=== PATIENT | male | born 1940 | race Asian ===

== ENCOUNTER 2025-05-13 06:33 | Inpatient (IN) | payer MEDICARE, BC ==
[~2025-05-13] VITALS: Ht 165.1 cm; Wt 72.6 kg
[2025-05-13] MEDS: ASPIRIN/SOD BICARB/CITRIC ACID 324MG TAB EFF PO ONE (06:30)
[2025-05-13] MEDS ORDERED: OLME40TA11 PO (06:43)
[2025-05-13] MEDS ORDERED: WARF-53 PO (06:43)
[2025-05-13] MEDS ORDERED: BUDE6HFA INH (06:55)
[2025-05-13] MEDS ORDERED: ALBU18HF2 IH (06:55)
[2025-05-13] MEDS ORDERED: HEPARIN 1000 UNITS/ML 10ML ONE (07:45)
[2025-05-13] MEDS ORDERED: LIDOCAINE HCL 1% 20ML VIAL ONE (07:46)
[2025-05-13] MEDS ORDERED: FENTANYL CITRATE/PF 50MCG/ML 2ML VIAL ONE (07:53)
[2025-05-13] MEDS ORDERED: IODIXANOL 320MG/ML 100 ML BOTTLE IV ONE ×2 (07:53→08:43)
[2025-05-13] MEDS ORDERED: MIDAZOLAM HCL 2 MG/2 ML VIAL ONE (07:54)
[2025-05-13] MEDS ORDERED: EPINEPHRINE 0.1MG/ML (1:10,000) 10ML SYR ONE (08:38)
[2025-05-13] MEDS ORDERED: ATROPINE SULFATE 1MG/10ML SYR ONE (08:38)
[2025-05-13] MEDS ORDERED: ATROPINE SULFATE 1MG/10ML SYR IV PRN (09:30)
[2025-05-13] MEDS ORDERED: ACETAMINOPHEN 325MG TABLET PO PRN ×3 (09:30→11:45)
[2025-05-13 09:55] VITALS: BP 114/64; PULSE 72; RESP 16; TEMP 36.7; O2SAT 96
[2025-05-13 10:49] VITALS: BP 114/64; PULSE 72; RESP 16; TEMP 36.696
[2025-05-13 12:00] VITALS: BP 119/76; PULSE 85; RESP 17; TEMP 36.6; O2SAT 92
[2025-05-13] MEDS ORDERED: EPOETIN ALFA 10,000 UNITS/ML VIAL SUBCUT SCH (12:00)
[2025-05-13] MEDS: SODIUM CHLORIDE 0.45% 1,000 ML IV ONE (12:15)
[2025-05-13] MEDS ORDERED: ACETYLCYSTEINE 200MG/ML 20% VIAL 4ML INH SCH (14:00)
[2025-05-13 16:00] VITALS: BP 125/75; PULSE 78; RESP 18; TEMP 36.8; O2SAT 95
[2025-05-13 16:00] LABS: BASOPHILS % 0.3 % (0.0-2.0); EOSINOPHILS % 0.9 % (0.0-5.0); HEMATOCRIT. 40.8 % (42.0-52.0); HEMOGLOBIN. 13.4 g/dL (14.0-18.0); LYMPHOCYTES % 12.6 % (20.0-50.0); MEAN PLATELET VOLUME 8.2 fl (7.4-10.4); MONOCYTES % 6.1 % (2.0-8.0); NEUTROPHILS % 80.1 % (40.0-76.0); PLATELET 160 x1000/uL (130-400); RED BLOOD CELL COUNT 4.34 mill/uL (4.7-6.1); RED CELL DISTRIBUTION WIDTH 13.3 % (11.6-14.6)
[2025-05-13] MEDS ORDERED: ENOXAPARIN 40MG/0.4ML SYR SUBCUT SCH (16:00)
[2025-05-13 16:09] LABS: CREATININE 1.3 mg/dL (0.6-1.3); UREA NITROGEN BLOOD 20.0 mg/dL (9-23)
[2025-05-13 16:23] LABS: INR 1.2
[2025-05-13 16:48] LABS: HEPATITIS C AB NON REACTIVE (Neg) (Negative)
[2025-05-13 20:00] VITALS: BP 117/63; PULSE 78; RESP 16; TEMP 37; O2SAT 97
[2025-05-13] MEDS: ACETYLCYSTEINE 200MG/ML 20% VIAL 4ML PO SCH (20:58)
[2025-05-13] MEDS ORDERED: BISACODYL 10MG SUPP PR PRN (21:00)
[2025-05-13] MEDS ORDERED: DIPHENHYDRAMINE 25MG CAPSULE PO PRN (21:00)
[2025-05-13 21:06] VITALS: PULSE 74; RESP 18; O2SAT 98
[2025-05-13] MEDS: ASCORBIC ACID 500 MG TABLET PO SCH (21:17)
[2025-05-13] MEDS: DOCUSATE SODIUM 100MG CAPSULE PO SCH (21:17)
[2025-05-13] MEDS: ALLOPURINOL 300 MG TABLET PO SCH (21:18)
[2025-05-14 00:16] VITALS: BP 109/72; PULSE 76; RESP 20; TEMP 37.1; O2SAT 96
[2025-05-14 04:00] VITALS: BP 123/76; PULSE 73; RESP 20; TEMP 36.6; O2SAT 95
[2025-05-14] MEDS ORDERED: CHLORHEXIDINE GLUCONATE 4% EXTERNAL USE TOP SCH (05:00)
[2025-05-14 07:09] LABS: CREATININE 1.3 mg/dL (0.6-1.3)
[2025-05-14 07:10] LABS: UREA NITROGEN BLOOD 20.0 mg/dL (9-23)
[2025-05-14 07:30] LABS: BASOPHILS % 0.7 % (0.0-2.0); EOSINOPHILS % 1.5 % (0.0-5.0); HEMATOCRIT. 37.2 % (42.0-52.0); HEMOGLOBIN. 12.4 g/dL (14.0-18.0); LYMPHOCYTES % 14.9 % (20.0-50.0); MEAN PLATELET VOLUME 8.2 fl (7.4-10.4); MONOCYTES % 7.1 % (2.0-8.0); NEUTROPHILS % 75.8 % (40.0-76.0); PLATELET 148 x1000/uL (130-400); RED BLOOD CELL COUNT 4.02 mill/uL (4.7-6.1); RED CELL DISTRIBUTION WIDTH 13.0 % (11.6-14.6)
[2025-05-14 08:00] VITALS: BP 116/97; PULSE 70; RESP 18; TEMP 36.8; O2SAT 96
[2025-05-14 12:00] VITALS: BP_SYST 104; BP_SYST 134; BP_DIAS 85; BP_DIAS 91; PULSE 71; PULSE 82; RESP 18; TEMP 36.7; TEMP 36.8; O2SAT 95; O2SAT 96
[2025-05-14] MEDS: DOCUSATE SODIUM 250MG CAPSULE PO PRN (13:32)
[2025-05-14 16:00] VITALS: BP 106/96; PULSE 73; RESP 14; TEMP 36.9; O2SAT 96
[2025-05-14 20:00] VITALS: PULSE 78; RESP 22; TEMP 36.8
[2025-05-14] MEDS: CHLORHEXIDINE GLUCONATE 4% EXTERNAL USE TOP SCH (20:41)
[2025-05-14] MEDS: ALLOPURINOL 300 MG TABLET PO SCH (22:43)
[2025-05-15] VITALS (56 sets, daily range): BP systolic 72–126; BP diastolic 42–88; PULSE 59–103; RESP 8–22; TEMP 36–36.7; O2SAT 78–100
[2025-05-15] MEDS: CHLORHEXIDINE GLUCONATE 4% EXTERNAL USE TOP SCH (05:00)
[2025-05-15] MEDS ORDERED: DEL NIDO CARDIOPLEGIA 1,000 ML (PREMIX) IV NR ×2 (05:00)
[2025-05-15] MEDS ORDERED: VANCOMYCIN 1GM PMX (XELLIA) 200 ML IV SCH (05:00)
[2025-05-15] MEDS ORDERED: NICARDIPINE 40MG/200ML PREMIX 200 ML IV PRN (05:00)
[2025-05-15] MEDS ORDERED: PAPAVERINE HCL 180MG in SODIUM CHLORIDE 0.9% 24ML IV PRN (05:00)
[2025-05-15] MEDS ORDERED: EPINEPHRINE 5 MG in SODIUM CHLORIDE 0.9% 245 ML IV PRN (05:00)
[2025-05-15] MEDS ORDERED: DOBUTAMINE 250 MG/250 ML PREMIX IV PRN (05:00)
[2025-05-15] MEDS ORDERED: AMINOCAPROIC ACID 5,000 MG in SODIUM CHLORIDE 0.9% 250 ML IV PRN (05:00)
[2025-05-15] MEDS ORDERED: LR with VERAPAMIL, NTG, HEPARIN, SODIUM BICARBONATE (Soln) IV PRN (05:00)
[2025-05-15] MEDS ORDERED: NOREPINEPHRINE 8MG/250ML PMX 250 ML IV PRN (05:00)
[2025-05-15 05:12] LABS: BASOPHILS % 1.0 % (0.0-2.0); EOSINOPHILS % 1.4 % (0.0-5.0); HEMATOCRIT. 39.9 % (42.0-52.0); HEMOGLOBIN. 13.0 g/dL (14.0-18.0); LYMPHOCYTES % 20.9 % (20.0-50.0); MEAN PLATELET VOLUME 7.8 fl (7.4-10.4); MONOCYTES % 8.7 % (2.0-8.0); NEUTROPHILS % 68.0 % (40.0-76.0); PLATELET 152 x1000/uL (130-400); RED BLOOD CELL COUNT 4.25 mill/uL (4.7-6.1); RED CELL DISTRIBUTION WIDTH 13.2 % (11.6-14.6)
[2025-05-15 05:23] LABS: CREATININE 0.7 mg/dL (0.6-1.3); UREA NITROGEN BLOOD 20 mg/dL (9-23)
[2025-05-15] MEDS: ALLOPURINOL 300 MG TABLET PO NR (05:44)
[2025-05-15] MEDS ORDERED: NITROGLYCERIN 50MG PREMIX 250 ML IV ONE (06:05)
[2025-05-15] MEDS ORDERED: DEXMEDETOMIDINE 100 ML IV ONE (06:05)
[2025-05-15] MEDS ORDERED: THROMBIN (BOVINE) 5000 UNITS/VIAL TOP ONE (06:06)
[2025-05-15] MEDS ORDERED: POLYMYXIN B SULFATE 500000 UNITS/VIAL ONE (06:06)
[2025-05-15] MEDS ORDERED: SKIN ADHESIVE 0.7 GM EA TOP ONE (06:43)
[2025-05-15] MEDS ORDERED: PROPOFOL 10MG/ML 100ML 100 ML IV ONE (06:44)
[2025-05-15] MEDS ORDERED: ROCURONIUM BROMIDE 10MG/ML VIAL 5ML IV ONE ×2 (06:52→08:28)
[2025-05-15] MEDS ORDERED: PROPOFOL 200MG/20ML VIAL IV ONE (06:52)
[2025-05-15] MEDS ORDERED: ONDANSETRON HCL 4MG/2ML INJ ONE (06:52)
[2025-05-15] MEDS ORDERED: DEXAMETHASONE 4MG/ML 1ML VIAL ONE (06:52)
[2025-05-15] MEDS ORDERED: HEPARIN 1000 UNITS/ML 10ML ONE ×2 (06:52→06:56)
[2025-05-15] MEDS ORDERED: ETOMIDATE 2MG/ML 10ML VIAL IV ONE (06:52)
[2025-05-15] MEDS ORDERED: ESMOLOL HCL 10MG/ML 10ML VIAL IV ONE (06:52)
[2025-05-15] MEDS ORDERED: LIDOCAINE HCL 1% 10 MG/ML 10ML VIAL ONE (06:52)
[2025-05-15] MEDS ORDERED: SEVOFLURANE 250 ML LIQUID INH ONE (06:55)
[2025-05-15] MEDS ORDERED: FENTANYL CITRATE/PF 50MCG/ML 5ML VIAL ONE (07:07)
[2025-05-15] MEDS ORDERED: CALCIUM CHLORIDE 1GM/10ML SYR IV ONE (07:11)
[2025-05-15] MEDS ORDERED: CEFAZOLIN 2000MG PREMIX 50 ML IV SCH (07:30)
[2025-05-15] MEDS ORDERED: FUROSEMIDE 100MG/10ML VIAL ONE (09:27)
[2025-05-15] MEDS ORDERED: DEXTROSE 50% WATER 50ML SYRINGE IV PRN ×2 (09:30)
[2025-05-15] MEDS ORDERED: MAGNESIUM 2 G PREMIX 50 ML IV PRN ×2 (09:30→11:45)
[2025-05-15] MEDS ORDERED: KCL 10MEQ/50ML PREMIX 200 ML IV PRN (09:30)
[2025-05-15] MEDS ORDERED: MAGNESIUM 1 G PREMIX 100 ML IV PRN (09:30)
[2025-05-15] MEDS ORDERED: KCL 10MEQ/50ML PREMIX 100 ML IV PRN (09:30)
[2025-05-15] MEDS ORDERED: MAGNESIUM SULFATE 3 GM in DEXT 5% WATER 100 ML IV PRN ×2 (09:30→11:45)
[2025-05-15] MEDS ORDERED: ACETAMINOPHEN 1000MG/100ML 100 ML IV ONE (10:06)
[2025-05-15] MEDS ORDERED: DESMOPRESSIN ACETATE 4MCG/ML AMP ONE (11:19)
[2025-05-15] MEDS ORDERED: DOPAMINE 400MG/250ML PREMIX 250 ML IV SCH (11:45)
[2025-05-15] MEDS ORDERED: ALBUMIN HUMAN 12.5G/250ML (5%) IV PRN (11:45)
[2025-05-15] MEDS ORDERED: SODIUM CHLORIDE 0.9% 500 ML IV PRN (11:45)
[2025-05-15] MEDS ORDERED: ALBUMIN HUMAN 25GM/100ML (25%) IV PRN (11:45)
[2025-05-15] MEDS ORDERED: CALCIUM CHLORIDE 5,000 MG in DEXT 5% WATER 500 ML IV PRN (11:45)
[2025-05-15] MEDS ORDERED: CALCIUM CHLORIDE 3,000 MG in DEXT 5% WATER 250 ML IV PRN (11:45)
[2025-05-15] MEDS ORDERED: ACETAMINOPHEN 325MG TABLET PO PRN (11:45)
[2025-05-15] MEDS ORDERED: ALBUMIN HUMAN 12.5G/250ML (5%) IV ONE ×2 (11:59→12:45)
[2025-05-15 12:06] LABS: CREATININE 1.2 mg/dL (0.6-1.3)
[2025-05-15 12:07] LABS: UREA NITROGEN BLOOD 19 mg/dL (9-23)
[2025-05-15 12:08] LABS: ASPARTATE AMINOTRANSFERASE 48 IU/L (<34)
[2025-05-15 12:09] LABS: BILIRUBIN TOTAL 1.1 mg/dL (0.1-1.0); PHOSPHORUS 1.8 mg/dL (2.5-4.9); PROTEIN TOTAL 5.8 g/dL (6.0-8.3)
[2025-05-15] MEDS: INSULIN REGULAR 100 U/100 ML PREMIX IV SCH (12:22)
[2025-05-15] MEDS: DEXT 5%/0.45% NACL 1000ML 1,000 ML IV SCH (12:43)
[2025-05-15] MEDS: ALBUMIN HUMAN 12.5G/250ML (5%) IV NR ×2 (12:44→13:16)
[2025-05-15] MEDS ORDERED: DOPAMINE 400MG/250ML PREMIX 250 ML IV PRN (12:45)
[2025-05-15 12:50] LABS: BG BASE EXCESS -12.1 mmol/L (-2.0-3.0); BG CARBOXYHEMOGLOBIN 0.4 % (0.5-1.5); BG DEOXYHEMOGLOBIN 7.7 % (0.0-5.0); BG FLOW(L/min) 15.00 L/min; BG FRACTION INSPIRED OXYGEN 100; BG HCO3 ACT 14.9 mmol/L (21.0-28.0); BG METHEMOGLOBIN 0.1 % (0.5-1.5); BG OXYGEN SATURATION 92.3 % (94.0-98.0); BG OXYHEMOGLOBIN 91.8 % (94.0-98.0); BG PCO2 37.8 mmHg (35.0-48.0); BG PH 7.214 (7.350-7.450); BG PO2 75.3 mmHg (83.0-108.0); BG SAMPLE SITE ALINE; BG TOTAL HEMOGLOBIN 11.2 g/dL (13.5-17.5); BG VENT MODE MASK - NRB
[2025-05-15] MEDS: IPRATROPIUM/ALBUTEROL 0.5-3(2.5)MG/3ML NEB HHN SCH (12:54)
[2025-05-15] MEDS: KETOROLAC 15MG/ML VIAL IV NR (12:56)
[2025-05-15 12:58] LABS: TROPONIN I HIGH SENSITIVITY 4557 ng/L (3.0-53)
[2025-05-15] MEDS ORDERED: ONDANSETRON HCL 4MG/2ML INJ IV PRN (13:00)
[2025-05-15] MEDS: BLOOD SUGAR DIAGNOSTIC STRIP TEST SCH (13:00)
[2025-05-15] MEDS: FENTANYL CITRATE/PF 50MCG/ML 2ML VIAL IV ONE (13:05)
[2025-05-15] MEDS: DOPAMINE 400MG/250ML PREMIX 250 ML IV PRN ×2 (13:18→19:36)
[2025-05-15] MEDS: EPINEPHRINE 5 MG in DEXT 5% WATER 245 ML IV PRN (13:19)
[2025-05-15] MEDS: NOREPINEPHRINE 8MG/250ML PMX 250 ML IV PRN (13:20)
[2025-05-15 13:51] LABS: BASOPHILS % 0.2 % (0.0-2.0); EOSINOPHILS % 0.1 % (0.0-5.0); HEMATOCRIT. 31.7 % (42.0-52.0); HEMOGLOBIN. 10.1 g/dL (14.0-18.0); LYMPHOCYTES % 8.8 % (20.0-50.0); MEAN PLATELET VOLUME 8.3 fl (7.4-10.4); MONOCYTES % 6.1 % (2.0-8.0); NEUTROPHILS % 84.8 % (40.0-76.0); PLATELET 114 x1000/uL (130-400); RED BLOOD CELL COUNT 3.31 mill/uL (4.7-6.1); RED CELL DISTRIBUTION WIDTH 13.5 % (11.6-14.6)
[2025-05-15] MEDS: KCL 10MEQ/50ML PREMIX 150 ML IV PRN (14:10)
[2025-05-15 14:15] LABS: INR 1.3
[2025-05-15] MEDS: MORPHINE SULFATE 2 MG/ML INJ (NOT FOR IM USE) IV PRN (14:23)
[2025-05-15] MEDS: CEFAZOLIN 1000MG PREMIX 50 ML IV SCH (14:24)
[2025-05-15 14:49] LABS: BG BASE EXCESS -10.9 mmol/L (-2.0-3.0); BG CARBOXYHEMOGLOBIN 0.6 % (0.5-1.5); BG DEOXYHEMOGLOBIN 8.1 % (0.0-5.0); BG FLOW(L/min) 15.00 L/min; BG FRACTION INSPIRED OXYGEN 100; BG HCO3 ACT 16.3 mmol/L (21.0-28.0); BG METHEMOGLOBIN 0.2 % (0.5-1.5); BG OXYGEN SATURATION 91.8 % (94.0-98.0); BG OXYHEMOGLOBIN 91.1 % (94.0-98.0); BG PCO2 41.6 mmHg (35.0-48.0); BG PH 7.211 (7.350-7.450); BG PO2 74.2 mmHg (83.0-108.0); BG SAMPLE SITE ALINE; BG TOTAL HEMOGLOBIN 11.3 g/dL (13.5-17.5); BG VENT MODE MASK - NRB
[2025-05-15] MEDS: SODIUM BICARBONATE 8.4% 50MEQ/50ML SYR IV SCH (15:30)
[2025-05-15] MEDS: FUROSEMIDE 100MG/10ML VIAL IVP NR (15:31)
[2025-05-15] MEDS: HYDROMORPHONE HCL/PF 1MG/ML INJ IV PRN (15:56)
[2025-05-15] MEDS: ASPIRIN 81MG EC TABLET PO SCH (17:06)
[2025-05-15 18:09] LABS: BG BASE EXCESS -3.3 mmol/L (-2.0-3.0); BG CARBOXYHEMOGLOBIN 0.6 % (0.5-1.5); BG DEOXYHEMOGLOBIN 5.5 % (0.0-5.0); BG FLOW(L/min) 6.00 L/min; BG FRACTION INSPIRED OXYGEN 44; BG HCO3 ACT 23.4 mmol/L (21.0-28.0); BG METHEMOGLOBIN 0.2 % (0.5-1.5); BG OXYGEN SATURATION 94.5 % (94.0-98.0); BG OXYHEMOGLOBIN 93.7 % (94.0-98.0); BG PCO2 49.1 mmHg (35.0-48.0); BG PH 7.296 (7.350-7.450); BG PO2 80.1 mmHg (83.0-108.0); BG SAMPLE SITE ALINE; BG TOTAL HEMOGLOBIN 11.2 g/dL (13.5-17.5); BG VENT MODE NASAL CANNULA
[2025-05-15] MEDS ORDERED: WARFARIN SODIUM 2MG TABLET PO ONE (18:15)
[2025-05-15] MEDS: EPINEPHRINE 5 MG in SODIUM CHLORIDE 0.9% 245 ML IV PRN (18:20)
[2025-05-15] MEDS: INSULIN REGULAR 100U/100ML PMX 100 ML IV PRN (18:26)
[2025-05-15 18:30] LABS: PLATELET 105 x1000/uL (130-400); RED BLOOD CELL COUNT 3.26 mill/uL (4.7-6.1); RED CELL DISTRIBUTION WIDTH 13.3 % (11.6-14.6)
[2025-05-15] MEDS: METOCLOPRAMIDE HCL 10MG/2ML VIAL IV SCH (18:36)
[2025-05-15 18:50] LABS: UREA NITROGEN BLOOD 27 mg/dL (9-23)
[2025-05-15 18:52] LABS: PHOSPHORUS 1.3 mg/dL (2.5-4.9)
[2025-05-15 18:53] LABS: CREATININE 2.0 mg/dL (0.6-1.3)
[2025-05-15] MEDS: ALBUMIN HUMAN 25GM/100ML (25%) IV NR (19:55)
[2025-05-15] MEDS: WARFARIN SODIUM 2MG TABLET PO SCH (19:57)
[2025-05-15] MEDS: DOCUSATE SODIUM 100MG CAPSULE PO SCH (20:09)
[2025-05-15] MEDS: DEXT 5%/0.2% NACL 1,000 ML IV ONE (20:13)
[2025-05-15] MEDS: BACITRACIN 14GM TUBE TOP SCH (21:10)
[2025-05-15] MEDS: POTASSIUM PHOSPHATE 30 MMOL in DEXT 5% WATER 490 ML IV NR (21:29)
[2025-05-15] MEDS: HYDROMORPHONE HCL/PF 2MG/ML INJ IV PRN (22:02)
[2025-05-15] MEDS: ACETYLCYSTEINE 200MG/ML 20% VIAL 4ML PO SCH (23:22)
[2025-05-16] VITALS (104 sets, daily range): BP systolic 61–157; BP diastolic 38–106; PULSE 65–83; RESP 6–24; TEMP 36.4–37.00296; O2SAT 91–100
[2025-05-16 01:38] LABS: HEMATOCRIT. 27.4 % (42.0-52.0); HEMOGLOBIN. 8.7 g/dL (14.0-18.0); MEAN PLATELET VOLUME 8.2 fl (7.4-10.4); PLATELET 81 x1000/uL (130-400); RED BLOOD CELL COUNT 2.92 mill/uL (4.7-6.1); RED CELL DISTRIBUTION WIDTH 13.2 % (11.6-14.6)
[2025-05-16 01:48] LABS: CREATININE 2.4 mg/dL (0.6-1.3); UREA NITROGEN BLOOD 29 mg/dL (9-23)
[2025-05-16 01:50] LABS: PHOSPHORUS 4.7 mg/dL (2.5-4.9)
[2025-05-16] MEDS: ONDANSETRON HCL 4MG/2ML INJ IV PRN (02:04)
[2025-05-16] MEDS: FUROSEMIDE 40MG/4ML VIAL IVP NR (03:21)
[2025-05-16 06:17] LABS: BG BASE EXCESS -5.8 mmol/L (-2.0-3.0); BG CARBOXYHEMOGLOBIN 0.7 % (0.5-1.5); BG DEOXYHEMOGLOBIN 5.5 % (0.0-5.0); BG FLOW(L/min) 5.00 L/min; BG FRACTION INSPIRED OXYGEN 40; BG HCO3 ACT 21.7 mmol/L (21.0-28.0); BG METHEMOGLOBIN 0.3 % (0.5-1.5); BG OXYGEN SATURATION 94.4 % (94.0-98.0); BG OXYHEMOGLOBIN 93.5 % (94.0-98.0); BG PCO2 52.1 mmHg (35.0-48.0); BG PH 7.238 (7.350-7.450); BG PO2 78.4 mmHg (83.0-108.0); BG SAMPLE SITE ALINE; BG TOTAL HEMOGLOBIN 11.1 g/dL (13.5-17.5); BG VENT MODE NASAL CANNULA
[2025-05-16] MEDS: ACETYLCYSTEINE 200MG/ML 20% VIAL 4ML INH SCH (08:18)
[2025-05-16 08:26] LABS: INR 1.2
[2025-05-16 08:28] LABS: HEMATOCRIT. 31.4 % (42.0-52.0); HEMOGLOBIN. 10.4 g/dL (14.0-18.0); MEAN PLATELET VOLUME 8.7 fl (7.4-10.4); PLATELET 77 x1000/uL (130-400); RED BLOOD CELL COUNT 3.38 mill/uL (4.7-6.1); RED CELL DISTRIBUTION WIDTH 13.9 % (11.6-14.6)
[2025-05-16 08:40] LABS: CREATININE 2.9 mg/dL (0.6-1.3); UREA NITROGEN BLOOD 35 mg/dL (9-23)
[2025-05-16 08:42] LABS: PHOSPHORUS 7.4 mg/dL (2.5-4.9)
[2025-05-16] MEDS: FAMOTIDINE 20MG/2ML VIAL IV SCH (09:25)
[2025-05-16] MEDS: MIDODRINE HCL 5MG TABLET PO SCH (10:00)
[2025-05-16 10:01] LABS: BG BASE EXCESS -4.5 mmol/L (-2.0-3.0); BG CARBOXYHEMOGLOBIN 1.2 % (0.5-1.5); BG DEOXYHEMOGLOBIN 6.3 % (0.0-5.0); BG FLOW(L/min) 5.00 L/min; BG FRACTION INSPIRED OXYGEN 40; BG HCO3 ACT 22.0 mmol/L (21.0-28.0); BG METHEMOGLOBIN 0.1 % (0.5-1.5); BG OXYGEN SATURATION 93.6 % (94.0-98.0); BG OXYHEMOGLOBIN 92.4 % (94.0-98.0); BG PCO2 46.8 mmHg (35.0-48.0); BG PH 7.291 (7.350-7.450); BG PO2 68.8 mmHg (83.0-108.0); BG SAMPLE SITE ALINE; BG TOTAL HEMOGLOBIN 11.3 g/dL (13.5-17.5); BG VENT MODE NASAL CANNULA
[2025-05-16] MEDS: METOLAZONE 10MG TABLET PO NR (10:22)
[2025-05-16] MEDS: NALOXONE HCL 0.4MG/ML 1ML VIAL IV NR (10:50)
[2025-05-16] MEDS: NALOXONE HCL 0.4MG/ML VIAL IV PRN (10:50)
[2025-05-16] MEDS: SODIUM BICARBONATE 8.4% 50MEQ/50ML SYR IV SCH ×2 (11:19→16:35)
[2025-05-16 12:21] LABS: BG BASE EXCESS -1.6 mmol/L (-2.0-3.0); BG CARBOXYHEMOGLOBIN 1.0 % (0.5-1.5); BG DEOXYHEMOGLOBIN 8.0 % (0.0-5.0); BG FLOW(L/min) 5.00 L/min; BG FRACTION INSPIRED OXYGEN 40; BG HCO3 ACT 23.9 mmol/L (21.0-28.0); BG METHEMOGLOBIN 0.3 % (0.5-1.5); BG OXYGEN SATURATION 91.9 % (94.0-98.0); BG OXYHEMOGLOBIN 90.7 % (94.0-98.0); BG PCO2 43.7 mmHg (35.0-48.0); BG PH 7.356 (7.350-7.450); BG PO2 61.7 mmHg (83.0-108.0); BG SAMPLE SITE ALINE; BG TOTAL HEMOGLOBIN 11.1 g/dL (13.5-17.5); BG VENT MODE NASAL CANNULA
[2025-05-16 12:59] LABS: PLATELET 65 x1000/uL (130-400); RED BLOOD CELL COUNT 3.24 mill/uL (4.7-6.1); RED CELL DISTRIBUTION WIDTH 14.2 % (11.6-14.6)
[2025-05-16 13:08] LABS: INR 1.2
[2025-05-16 13:09] LABS: CREATININE 3.0 mg/dL (0.6-1.3)
[2025-05-16 13:10] LABS: UREA NITROGEN BLOOD 41 mg/dL (9-23)
[2025-05-16 13:20] LABS: ASPARTATE AMINOTRANSFERASE 110 IU/L (<34); BILIRUBIN DIRECT 0.6 mg/dL (<=3.0); BILIRUBIN TOTAL 1.5 mg/dL (0.1-1.0); PROTEIN TOTAL 5.7 g/dL (6.0-8.3)
[2025-05-16] MEDS: CALCIUM ACETATE 667MG CAPSULE PO SCH (13:32)
[2025-05-16] MEDS: WARFARIN SODIUM 2MG TABLET PO NR ×2 (13:32→20:40)
[2025-05-16] MEDS: BUMETANIDE 2.5MG/10ML VIAL IV NR (14:36)
[2025-05-16] MEDS ORDERED: HYDROMORPHONE HCL/PF 2MG/ML INJ IV PRN (15:00)
[2025-05-16] MEDS: LACTULOSE 20G/30ML UDC PO SCH (16:34)
[2025-05-16] MEDS: CALCIUM GLUCONATE 3,000 MG in DEXT 5% WATER 220 ML IV ONE (16:35)
[2025-05-16] MEDS: FUROSEMIDE 40MG/4ML VIAL IVP SCH (16:36)
[2025-05-16 18:07] LABS: GLUCOSE URINE NEGATIVE (NEGATIVE); KETONES URINE NEGATIVE (NEGATIVE); LEUKOCYTE ESTERASE URINE NEGATIVE (NEGATIVE); NITRITE URINE NEGATIVE (NEGATIVE); OCCULT BLOOD URINE 2+ (NEGATIVE); PH URINE 5.5 (4.5-8.0); PLATELET 57 x1000/uL (130-400); PROTEIN URINE NEGATIVE (NEGATIVE); RED BLOOD CELL COUNT 3.25 mill/uL (4.7-6.1); RED CELL DISTRIBUTION WIDTH 13.9 % (11.6-14.6); SPECIFIC GRAVITY URINE 1.008 (1.005-1.030); UROBILINOGEN URINE 0.2 E.U./dL (0.2-1.0)
[2025-05-16 18:21] LABS: CREATININE 3.2 mg/dL (0.6-1.3); UREA NITROGEN BLOOD 44 mg/dL (9-23)
[2025-05-16 18:34] LABS: CLARITY URINE SL HAZY (CLEAR); COLOR URINE STRAW (YELLOW)
[2025-05-16 18:35] LABS: WBC URINE 0-2 /hpf (0-2)
[2025-05-16 18:36] LABS: BACTERIA URINE NONE SEEN; SQUAMOUS EPITHELIAL CELL URINE RARE /lpf (RARE/1+)
[2025-05-16] MEDS ORDERED: METOCLOPRAMIDE HCL 10MG/2ML VIAL IV SCH (19:00)
[2025-05-16] MEDS: BLOOD SUGAR DIAGNOSTIC STRIP TEST SCH (20:18)
[2025-05-17] VITALS (106 sets, daily range): BP systolic 73–150; BP diastolic 41–116; PULSE 60–82; RESP 10–25; TEMP 36.3–36.7; O2SAT 86–100
[2025-05-17 07:38] LABS: HEMATOCRIT. 31.4 % (42.0-52.0); HEMOGLOBIN. 10.5 g/dL (14.0-18.0); MEAN PLATELET VOLUME 10.4 fl (7.4-10.4); PLATELET 71 x1000/uL (130-400); RED BLOOD CELL COUNT 3.40 mill/uL (4.7-6.1); RED CELL DISTRIBUTION WIDTH 13.6 % (11.6-14.6)
[2025-05-17 07:41] LABS: CREATININE 3.3 mg/dL (0.6-1.3)
[2025-05-17 07:42] LABS: UREA NITROGEN BLOOD 52 mg/dL (9-23)
[2025-05-17 07:58] LABS: PHOSPHORUS 8.1 mg/dL (2.5-4.9)
[2025-05-17] MEDS: BLOOD SUGAR DIAGNOSTIC STRIP TEST SCH (08:05)
[2025-05-17] MEDS: TAMSULOSIN HCL 0.4MG SR CAPSULE PO SCH (10:34)
[2025-05-17] MEDS: METOLAZONE 10MG TABLET PO NR (10:34)
[2025-05-17] MEDS: BUMETANIDE 2.5MG/10ML VIAL IV NR (10:35)
[2025-05-17] MEDS ORDERED: AMIODARONE 200MG TABLET PO SCH (11:30)
[2025-05-17] MEDS ORDERED: AMIODARONE 150MG/100ML D5W 100 ML IV NR (11:30)
[2025-05-17] MEDS: MAGNESIUM 2 G PREMIX 50 ML IV NR (11:39)
[2025-05-17 12:46] LABS: BAND% 6.0 % (1.0-6.0); LYMPHOCYTES % MANUAL 6.0 % (20.0-50.0); MONOCYTES % MANUAL 5.0 % (2.0-8.0); NEUTROPHILS % MANUAL 83.0 % (45.0-75.0); PLATELET ESTIMATE DECREASED
[2025-05-17] MEDS: WARFARIN SODIUM 3MG TABLET PO NR (13:00)
[2025-05-17 14:30] LABS: BAND% 4.0 % (1.0-6.0); LYMPHOCYTES % MANUAL 6.0 % (20.0-50.0); MONOCYTES % MANUAL 2.0 % (2.0-8.0); NEUTROPHILS % MANUAL 88.0 % (45.0-75.0)
[2025-05-17 14:31] LABS: PLATELET ESTIMATE DECREASED
[2025-05-17 17:45] LABS: LYMPHOCYTES % MANUAL 1.0 % (20.0-50.0); MONOCYTES % MANUAL 1.0 % (2.0-8.0); NEUTROPHILS % MANUAL 98.0 % (45.0-75.0); PLATELET ESTIMATE DECREASED
[2025-05-18] VITALS (45 sets, daily range): BP systolic 110–161; BP diastolic 49–81; PULSE 54–83; RESP 11–26; TEMP 36.5–37.3; O2SAT 90–100
[2025-05-18 06:07] LABS: HEMATOCRIT. 31.9 % (42.0-52.0); HEMOGLOBIN. 10.6 g/dL (14.0-18.0); MEAN PLATELET VOLUME 10.2 fl (7.4-10.4); PLATELET 62 x1000/uL (130-400); RED BLOOD CELL COUNT 3.46 mill/uL (4.7-6.1); RED CELL DISTRIBUTION WIDTH 13.4 % (11.6-14.6)
[2025-05-18 06:23] LABS: CREATININE 3.2 mg/dL (0.6-1.3)
[2025-05-18 06:24] LABS: UREA NITROGEN BLOOD 64 mg/dL (9-23)
[2025-05-18 06:26] LABS: PHOSPHORUS 5.8 mg/dL (2.5-4.9)
[2025-05-18] MEDS: MAGNESIUM 1 G PREMIX 100 ML IV PRN (08:29)
[2025-05-18] MEDS: FUROSEMIDE 100MG/10ML VIAL IVP NR (09:25)
[2025-05-18] MEDS: METHYLPREDNISOLONE SOD SUCC 125MG/2ML (ACT-O-VIAL) IV NR (09:26)
[2025-05-18] MEDS: MAGNESIUM 1 G PREMIX 100 ML IV NR (10:00)
[2025-05-18] MEDS: KCL 20MEQ/100ML PREMIX 100 ML IV NR (10:51)
[2025-05-18] MEDS: WARFARIN SODIUM 3MG TABLET PO NR (12:59)
[2025-05-18] MEDS: FUROSEMIDE 40MG/4ML VIAL IVP NR (16:23)
[2025-05-18 17:05] LABS: BAND% 3.0 % (1.0-6.0); LYMPHOCYTES % MANUAL 4.0 % (20.0-50.0); METAMYELOCYTES % 3.0 % (0-0); MONOCYTES % MANUAL 5.0 % (2.0-8.0); NEUTROPHILS % MANUAL 85.0 % (45.0-75.0); PLATELET ESTIMATE MARKEDLY DECREASED
[2025-05-18] MEDS: MINERAL OIL 30ML BOTTLE PO SCH (22:00)
[2025-05-19] VITALS: BP_SYST 118; PULSE 85; RESP 18; TEMP 36.9; O2SAT 100
[2025-05-19] MEDS: METOCLOPRAMIDE HCL 10MG/2ML VIAL IV SCH
[2025-05-19 00:07] LABS: INR 1.8
[2025-05-19 00:08] LABS: CREATININE 3.1 mg/dL (0.6-1.3); UREA NITROGEN BLOOD 80 mg/dL (9-23)
[2025-05-19 00:10] LABS: PHOSPHORUS 5.1 mg/dL (2.5-4.9)
[2025-05-19 04:00] VITALS: BP 129/82; PULSE 81; RESP 18; TEMP 36.8; O2SAT 100
[2025-05-19 08:00] VITALS: BP 129/70; PULSE 87; RESP 16; TEMP 36.6; O2SAT 97
[2025-05-19] MEDS: FUROSEMIDE 100MG/10ML VIAL IVP SCH (09:30)
[2025-05-19 10:36] LABS: HEMATOCRIT. 36.5 % (42.0-52.0); HEMOGLOBIN. 12.0 g/dL (14.0-18.0); MEAN PLATELET VOLUME 10.1 fl (7.4-10.4); PLATELET 72 x1000/uL (130-400); RED BLOOD CELL COUNT 3.95 mill/uL (4.7-6.1); RED CELL DISTRIBUTION WIDTH 13.4 % (11.6-14.6)
[2025-05-19 10:56] LABS: CREATININE 3.0 mg/dL (0.6-1.3); UREA NITROGEN BLOOD 70.0 mg/dL (9-23)
[2025-05-19] MEDS: CALCIUM ACETATE 667MG CAPSULE PO SCH (11:38)
[2025-05-19 12:00] VITALS: BP 117/68; PULSE 88; RESP 18; TEMP 36.7; O2SAT 98
[2025-05-19] MEDS: FUROSEMIDE 40MG/4ML VIAL IVP SCH (12:30)
[2025-05-19] MEDS: FAMOTIDINE 20MG TABLET PO SCH (15:50)
[2025-05-19] MEDS: FUROSEMIDE 20MG TABLET PO SCH (15:50)
[2025-05-19 16:00] VITALS: BP 120/65; PULSE 88; RESP 18; TEMP 36.7; O2SAT 98
[2025-05-19 16:16] LABS: LYMPHOCYTES % MANUAL 4.0 % (20.0-50.0); MONOCYTES % MANUAL 7.0 % (2.0-8.0); NEUTROPHILS % MANUAL 89.0 % (45.0-75.0); PLATELET ESTIMATE DECREASED
[2025-05-19] MEDS: WARFARIN SODIUM 2MG TABLET PO SCH (18:37)
[2025-05-19 20:00] VITALS: BP 109/70; PULSE 83; RESP 13; TEMP 36.8; O2SAT 97
[2025-05-20] VITALS (7 sets, daily range): BP systolic 91–134; BP diastolic 50–62; PULSE 86–93; RESP 14–19; TEMP 36.4–36.8; O2SAT 93–100
[2025-05-20 07:55] LABS: BASOPHILS % 0.1 % (0.0-2.0); EOSINOPHILS % 0.0 % (0.0-5.0); HEMATOCRIT. 37.9 % (42.0-52.0); HEMOGLOBIN. 12.4 g/dL (14.0-18.0); LYMPHOCYTES % 7.5 % (20.0-50.0); MEAN PLATELET VOLUME 9.6 fl (7.4-10.4); MONOCYTES % 11.4 % (2.0-8.0); NEUTROPHILS % 81.0 % (40.0-76.0); PLATELET 67 x1000/uL (130-400); RED BLOOD CELL COUNT 4.05 mill/uL (4.7-6.1); RED CELL DISTRIBUTION WIDTH 13.4 % (11.6-14.6)
[2025-05-20 08:23] LABS: CREATININE 2.6 mg/dL (0.6-1.3); UREA NITROGEN BLOOD 79.0 mg/dL (9-23)
[2025-05-20] MEDS: FUROSEMIDE 20MG TABLET PO SCH (11:15)
[2025-05-20] MEDS: MIDODRINE HCL 5MG TABLET PO SCH (13:00)
[2025-05-20] MEDS: WARFARIN SODIUM 2.5MG TABLET PO SCH (17:48)
[2025-05-20 22:35] LABS: INR 1.8
[2025-05-21] VITALS: BP 130/67; PULSE 94; RESP 18; TEMP 36.6; O2SAT 99
[2025-05-21 04:00] VITALS: BP 110/53; PULSE 93; RESP 18; TEMP 36.8; O2SAT 98
[2025-05-21 08:00] VITALS: BP 97/57; PULSE 97; RESP 15; TEMP 36.5; O2SAT 95
[2025-05-21 10:59] LABS: BASOPHILS % 0.1 % (0.0-2.0); EOSINOPHILS % 0.7 % (0.0-5.0); HEMATOCRIT. 35.0 % (42.0-52.0); HEMOGLOBIN. 11.6 g/dL (14.0-18.0); LYMPHOCYTES % 7.2 % (20.0-50.0); MEAN PLATELET VOLUME 9.8 fl (7.4-10.4); MONOCYTES % 11.9 % (2.0-8.0); NEUTROPHILS % 80.1 % (40.0-76.0); PLATELET 77 x1000/uL (130-400); RED BLOOD CELL COUNT 3.71 mill/uL (4.7-6.1); RED CELL DISTRIBUTION WIDTH 13.4 % (11.6-14.6)
[2025-05-21 11:07] LABS: INR 1.7
[2025-05-21 12:00] VITALS: BP 84/46; PULSE 91; RESP 15; TEMP 36.5; O2SAT 91
[2025-05-21] MEDS ORDERED: NITROGLYCERIN OINT 1GM/INCH UDPKT TD SCH (14:00)
[2025-05-21] MEDS: NITROGLYCERIN OINT 1GM/INCH UDPKT TD SCH (14:00)
[2025-05-21 15:30] LABS: CLARITY URINE CLEAR (CLEAR); COLOR URINE YELLOW (YELLOW); GLUCOSE URINE NEGATIVE (NEGATIVE); KETONES URINE NEGATIVE (NEGATIVE); LEUKOCYTE ESTERASE URINE TRACE (NEGATIVE); NITRITE URINE NEGATIVE (NEGATIVE); OCCULT BLOOD URINE TRACE (NEGATIVE); PH URINE 6.0 (4.5-8.0); PROTEIN URINE NEGATIVE (NEGATIVE); SPECIFIC GRAVITY URINE 1.018 (1.005-1.030); UROBILINOGEN URINE 1.0 E.U./dL (0.2-1.0)
[2025-05-21 15:37] LABS: CREATININE 2.0 mg/dL (0.6-1.3); UREA NITROGEN BLOOD 73.0 mg/dL (9-23)
[2025-05-21 15:49] LABS: INR 1.8
[2025-05-21 16:00] VITALS: BP 97/56; PULSE 92; RESP 19; TEMP 36.4; O2SAT 95
[2025-05-21] MEDS: SODIUM CHLORIDE 0.9% 250 ML IV ONE (16:14)
[2025-05-21] MEDS: WARFARIN SODIUM 3MG TABLET PO NR (17:45)
[2025-05-21 17:59] LABS: BACTERIA URINE TRACE; RBC URINE 0-2 /hpf (0-2); SQUAMOUS EPITHELIAL CELL URINE RARE /lpf (RARE/1+); WBC URINE 0-2 /hpf (0-2)
[2025-05-21 20:00] VITALS: BP 108/44; PULSE 84; RESP 17; TEMP 36.7; O2SAT 95
[2025-05-22] VITALS: BP 97/46; PULSE 97; RESP 19; TEMP 36.8; O2SAT 98
[2025-05-22 04:00] VITALS: BP 123/53; PULSE 97; RESP 18; TEMP 37.1; O2SAT 96
[2025-05-22 08:00] VITALS: BP 120/53; PULSE 99; RESP 13; TEMP 36.7; O2SAT 97
[2025-05-22] MEDS: MINERAL OIL 30ML BOTTLE PO NR (09:45)
[2025-05-22] MEDS: DOCUSATE SODIUM 250MG CAPSULE PO SCH (09:45)
[2025-05-22 11:17] LABS: HEMATOCRIT. 30.8 % (42.0-52.0); HEMOGLOBIN. 10.3 g/dL (14.0-18.0); MEAN PLATELET VOLUME 9.3 fl (7.4-10.4); PLATELET 82 x1000/uL (130-400); RED BLOOD CELL COUNT 3.31 mill/uL (4.7-6.1); RED CELL DISTRIBUTION WIDTH 13.3 % (11.6-14.6)
[2025-05-22 12:00] VITALS: BP 97/75; PULSE 100; RESP 20; TEMP 36.9; O2SAT 97
[2025-05-22 13:01] LABS: INR 1.7
[2025-05-22] MEDS: CEFTRIAXONE 1GM/50ML 50 ML IV NR (13:30)
[2025-05-22 14:21] LABS: EOSINOPHILS % MANUAL 2.0 % (0.0-5.0); LYMPHOCYTES % MANUAL 10.0 % (20.0-50.0); MONOCYTES % MANUAL 10.0 % (2.0-8.0); MYELOCYTES % 1.0 % (0-0); NEUTROPHILS % MANUAL 77.0 % (45.0-75.0); PLATELET ESTIMATE DECREASED
[2025-05-22 16:00] VITALS: BP 94/54; PULSE 101; RESP 19; TEMP 36.3; O2SAT 97
[2025-05-22] MEDS: WARFARIN SODIUM 3MG TABLET PO NR (17:47)
[2025-05-22 20:00] VITALS: BP 137/58; PULSE 93; RESP 16; TEMP 36.9; O2SAT 96
[2025-05-22] MEDS: WARFARIN SODIUM 2MG TABLET PO NR (20:16)
[2025-05-23] VITALS: BP 116/56; PULSE 98; RESP 17; TEMP 36.7; O2SAT 98
[2025-05-23 04:28] VITALS: BP 109/55; PULSE 92; RESP 16; TEMP 37; O2SAT 95
[2025-05-23 06:47] LABS: HEMATOCRIT. 29.9 % (42.0-52.0); HEMOGLOBIN. 9.9 g/dL (14.0-18.0); MEAN PLATELET VOLUME 8.9 fl (7.4-10.4); PLATELET 91 x1000/uL (130-400); RED BLOOD CELL COUNT 3.21 mill/uL (4.7-6.1); RED CELL DISTRIBUTION WIDTH 13.8 % (11.6-14.6)
[2025-05-23 06:49] LABS: INR 2.1
[2025-05-23 06:53] LABS: CREATININE 1.7 mg/dL (0.6-1.3)
[2025-05-23 06:54] LABS: UREA NITROGEN BLOOD 50.0 mg/dL (9-23)
[2025-05-23 08:00] VITALS: BP 101/54; PULSE 94; RESP 14; TEMP 36.6; O2SAT 95
[2025-05-23] MEDS: POTASSIUM CHLORIDE 20MEQ TABLET SR PO NR (08:52)
[2025-05-23 12:00] VITALS: BP 94/53; PULSE 96; RESP 19; TEMP 36.9; O2SAT 97
[2025-05-23] MEDS: SODIUM CHLORIDE 0.9% 250 ML IV ONE (13:12)
[2025-05-23 16:00] VITALS: BP 105/58; PULSE 95; RESP 15; TEMP 36.6; O2SAT 95
[2025-05-23] MEDS ORDERED: WARFARIN SODIUM 3MG TABLET PO SCH (18:00)
[2025-05-23] MEDS: WARFARIN SODIUM 5MG TABLET PO NR (18:31)
[2025-05-23 20:00] VITALS: BP 101/61; PULSE 94; RESP 16; TEMP 37.2; O2SAT 95
[2025-05-24] VITALS: BP 131/53; PULSE 96; RESP 15; TEMP 37.4; O2SAT 94
[2025-05-24 04:34] VITALS: BP 95/57; PULSE 93; RESP 17; TEMP 36.9; O2SAT 94
[2025-05-24 07:08] LABS: INR 2.4
[2025-05-24 07:15] LABS: BASOPHILS % 0.3 % (0.0-2.0); EOSINOPHILS % 3.8 % (0.0-5.0); HEMATOCRIT. 31.5 % (42.0-52.0); HEMOGLOBIN. 10.6 g/dL (14.0-18.0); LYMPHOCYTES % 7.6 % (20.0-50.0); MEAN PLATELET VOLUME 9.4 fl (7.4-10.4); MONOCYTES % 8.3 % (2.0-8.0); NEUTROPHILS % 80.0 % (40.0-76.0); PLATELET 116 x1000/uL (130-400); RED BLOOD CELL COUNT 3.38 mill/uL (4.7-6.1); RED CELL DISTRIBUTION WIDTH 13.6 % (11.6-14.6)
[2025-05-24 07:18] LABS: CREATININE 1.8 mg/dL (0.6-1.3); UREA NITROGEN BLOOD 44 mg/dL (9-23)
[2025-05-24 07:20] LABS: PHOSPHORUS 3.0 mg/dL (2.5-4.9)
[2025-05-24 08:00] VITALS: BP 109/51; PULSE 92; RESP 13; TEMP 36.8; O2SAT 94
[2025-05-24 08:34] LABS: BAND% 12.0 % (1.0-6.0); BASOPHILS % MANUAL 1.0 % (0.0-2.0); EOSINOPHILS % MANUAL 9.0 % (0.0-5.0); LYMPHOCYTES % MANUAL 39.0 % (20.0-50.0); MONOCYTES % MANUAL 10.0 % (2.0-8.0); NEUTROPHILS % MANUAL 29.0 % (45.0-75.0); PLATELET ESTIMATE DECREASED
[2025-05-24 12:00] VITALS: BP 123/84; PULSE 92; RESP 19; TEMP 36.8; O2SAT 95
[2025-05-24 16:00] VITALS: BP 124/63; PULSE 92; RESP 17; TEMP 36.7; O2SAT 94
[2025-05-24] MEDS: METOCLOPRAMIDE HCL 5MG TABLET PO SCH (17:16)
[2025-05-24] MEDS: WARFARIN SODIUM 5MG TABLET PO SCH (17:17)
[2025-05-24] MEDS ORDERED: WARFARIN SODIUM 3MG TABLET PO SCH (18:00)
[2025-05-25] VITALS: BP 132/67; PULSE 95; RESP 18; TEMP 36.8; O2SAT 96
[2025-05-25 04:00] VITALS: BP 105/61; PULSE 98; RESP 20; TEMP 36.7; O2SAT 95
[2025-05-25 06:37] LABS: BASOPHILS % 0.4 % (0.0-2.0); EOSINOPHILS % 3.8 % (0.0-5.0); HEMATOCRIT. 31.0 % (42.0-52.0); HEMOGLOBIN. 10.4 g/dL (14.0-18.0); LYMPHOCYTES % 7.7 % (20.0-50.0); MEAN PLATELET VOLUME 9.9 fl (7.4-10.4); MONOCYTES % 8.6 % (2.0-8.0); NEUTROPHILS % 79.5 % (40.0-76.0); PLATELET 123 x1000/uL (130-400); RED BLOOD CELL COUNT 3.31 mill/uL (4.7-6.1); RED CELL DISTRIBUTION WIDTH 13.5 % (11.6-14.6)
[2025-05-25 06:54] LABS: CREATININE 1.7 mg/dL (0.6-1.3); INR 2.9; UREA NITROGEN BLOOD 42.0 mg/dL (9-23)
[2025-05-25 08:00] VITALS: BP 113/62; PULSE 95; RESP 18; TEMP 36.8; O2SAT 96
[2025-05-25] MEDS ORDERED: AZITHROMYCIN 250 MG TABLET PO SCH (09:45)
[2025-05-25 12:00] VITALS: BP 95/53; PULSE 93; RESP 16; TEMP 36.7; O2SAT 97
[2025-05-25 16:00] VITALS: BP 111/58; PULSE 95; RESP 15; TEMP 36.8; O2SAT 92
[2025-05-25] MEDS: MIDODRINE HCL 5MG TABLET PO SCH (17:00)
[2025-05-25] MEDS: WARFARIN SODIUM 4MG TABLET PO SCH (18:01)
[2025-05-25] MEDS: AZITHROMYCIN 250 MG TABLET PO SCH (18:01)
[2025-05-25 20:00] VITALS: BP 131/109; PULSE 95; RESP 18; TEMP 36.8; O2SAT 94
[2025-05-26] VITALS: BP 112/63; PULSE 93; RESP 16; TEMP 36.6; O2SAT 93
[2025-05-26 04:00] VITALS: BP 100/63; PULSE 94; RESP 14; TEMP 36.7; O2SAT 96
[2025-05-26 06:06] LABS: BASOPHILS % 0.4 % (0.0-2.0); EOSINOPHILS % 2.6 % (0.0-5.0); HEMATOCRIT. 31.7 % (42.0-52.0); HEMOGLOBIN. 10.4 g/dL (14.0-18.0); LYMPHOCYTES % 9.4 % (20.0-50.0); MEAN PLATELET VOLUME 8.8 fl (7.4-10.4); MONOCYTES % 8.8 % (2.0-8.0); NEUTROPHILS % 78.8 % (40.0-76.0); PLATELET 140 x1000/uL (130-400); RED BLOOD CELL COUNT 3.36 mill/uL (4.7-6.1); RED CELL DISTRIBUTION WIDTH 14.2 % (11.6-14.6)
[2025-05-26] MEDS: NITROGLYCERIN 0.4MG TABLET SL SL PRN (06:10)
[2025-05-26 06:17] LABS: INR 3.6
[2025-05-26 06:21] LABS: CREATININE 1.7 mg/dL (0.6-1.3); UREA NITROGEN BLOOD 39.0 mg/dL (9-23)
[2025-05-26 08:00] VITALS: BP 115/66; PULSE 98; RESP 15; TEMP 36.7; O2SAT 95
[2025-05-26] MEDS ORDERED: AZITHROMYCIN 250 MG TABLET PO SCH (09:00)
[2025-05-26] MEDS: LIDOCAINE HCL 4% CREAM 76GM TUBE TP PRN (10:37)
[2025-05-26 12:00] VITALS: BP 134/117; PULSE 96; RESP 14; TEMP 36.9; O2SAT 95
[2025-05-26 12:46] LABS: INR 3.9
[2025-05-26 13:34] VITALS: BP 115/51
[2025-05-26 16:00] VITALS: BP 123/62; PULSE 96; RESP 14; TEMP 98.5
[2025-05-26] MEDS ORDERED: WARFARIN SODIUM 3MG TABLET PO SCH (18:00)
== END 2025-05-26 16:28 | disposition home health service (06) | DRG 216 ==
LOC: CCL 06:33 → 3WST 06:34 → CVICU 05-15 09:24 → 3WST 05-18 16:52
PROVIDERS: ADMIT Specialist; ATTEND Specialist
PROC: B2111ZZ Fluoroscopy of Multiple Coronary Arteries using Low Osmolar Contrast (ICD-10-PCS; 2025-05-13)
PROC: 02RF08Z Replacement of Aortic Valve with Zooplastic Tissue, Open Approach (ICD-10-PCS; principal; 2025-05-15)
PROC: 02100Z9 Bypass Coronary Artery, One Artery from Left Internal Mammary, Open Approach (ICD-10-PCS; 2025-05-15)
PROC: 021109W Bypass Coronary Artery, Two Arteries from Aorta with Autologous Venous Tissue, Open Approach (ICD-10-PCS; 2025-05-15)
PROC: 06BQ4ZZ Excision of Left Saphenous Vein, Percutaneous Endoscopic Approach (ICD-10-PCS; 2025-05-15)
PROC: 5A1221Z Performance of Cardiac Output, Continuous (ICD-10-PCS; 2025-05-15)
PROC: B24BZZ4 Ultrasonography of Heart with Aorta, Transesophageal (ICD-10-PCS; 2025-05-15)
PROC: 30233N1 Transfusion of Nonautologous Red Blood Cells into Peripheral Vein, Percutaneous Approach (ICD-10-PCS; 2025-05-16)
DX: I25.10 Atherosclerotic heart disease of native coronary artery without angina pectoris (principal); A41.9 Sepsis, unspecified organism; J96.01 Acute respiratory failure with hypoxia; N17.0 Acute kidney failure with tubular necrosis; J18.9 Pneumonia, unspecified organism; I27.20 Pulmonary hypertension, unspecified; I82.432 Acute embolism and thrombosis of left popliteal vein; D69.59 Other secondary thrombocytopenia; Z79.01 Long term (current) use of anticoagulants; I08.0 Rheumatic disorders of both mitral and aortic valves; I12.9 Hypertensive chronic kidney disease with stage 1 through stage 4 chronic kidney disease, or unspecified chronic kidney disease; D64.9 Anemia, unspecified; N18.9 Chronic kidney disease, unspecified; E87.1 Hypo-osmolality and hyponatremia; E83.39 Other disorders of phosphorus metabolism; E83.41 Hypermagnesemia; E78.5 Hyperlipidemia, unspecified; I49.5 Sick sinus syndrome; R79.89 Other specified abnormal findings of blood chemistry; E87.6 Hypokalemia; I48.91 Unspecified atrial fibrillation; R60.0 Localized edema; Z86.711 Personal history of pulmonary embolism; Z86.718 Personal history of other venous thrombosis and embolism; Z95.3 Presence of xenogenic heart valve
CPT/HCPCS: 36415; 36600; 71045; 76770; 80048; 80053; 80076; 81003; 82140; 82375; 82550; 82805; 82962; 83735; 84100; 84484; 85025; 85027; 85347; 85384; 86705; 86850; 86900; 86920; 87070; 87075; 87340; 88304; 93005; 93308; 93454; 93880; 93923; 93970; 94060; 94070; 94618; 94640; 94664; 97110; 97116; 97162; 97166; 97530; 97535; A4606; A4615; C1725; C1729; C1751; C1758; C1769; C1887; C1893; J0461; J0612; J0690; J0696; J1100; J1171; J1265; J1308; J1644; J1815; J1885; J1938; J2003; J2250; J2270; J2312; J2405; J2597; J2704; J2765; J2919; J2930; J3010; J3373; J3475; J3480; J3490; J7060; J7608; J8597; L3908; P9016; P9041; P9047; Q9967; A4217; C1713; J0131